=== PATIENT | male | born 1935 | race Caucasian/White ===

== ENCOUNTER 2023-07-17 05:05 | Day surgery (SDC) | payer OTHER ==
[2023-07-16 14:09] VITALS: BMI 26.4
[2023-07-17 08:34] LABS: BASO % 0.5 % (0-2.0); EOS % 5.2 % (0-4.5); HEMATOCRIT 37.4 % (35.4-49); HEMOGLOBIN 12.6 GM/dL (11.7-16.9); LYMPH % 21.1 % (8-40); MCHC 33.6 g/dl (32.0-35.9); MEAN CELL VOLUME 86.4 fl (80-96); MEAN PLT VOLUME 9.2 fl (7.5-11.1); MONO % 9.9 % (3.8-10.2); NEUT % 63.3 % (42.8-82.8); PLATELET COUNT 140 10^3/uL (134-434); RBC 4.33 M/mm3 (4.00-5.60); RDW 15.1 % (11.9-15.9); WHITE BLOOD COUNT 6.2 K/mm3 (4.0-10.0)
[2023-07-17 08:35] LABS: INR 1.07 (0.83-1.09); PROTHROMBIN TIME (PATIENT) 12.4 SEC (9.7-13.0)
[2023-07-17] MEDS ORDERED: FENTANYL CITRATE/PF 50 MCG/ML VIAL ONE (10:26)
[2023-07-17] MEDS ORDERED: FENTANYL CITRATE/PF 50 MCG/ML VIAL IVPUSH ONE (10:50)
[2023-07-17 11:00] VITALS: RESP 18
[2023-07-17 12:50] VITALS: BP 129/80; PULSE 80; TEMP 97.8
== END 2023-07-17 13:15 | disposition home or self-care (01) ==
LOC: JRADIR 05:05
PROVIDERS: ATTEND Radiology Radiation Oncology
PROC: 0QB23ZX Excision of Right Pelvic Bone, Percutaneous Approach, Diagnostic (ICD-10-PCS; principal; 2023-07-17)
DX: C61 Malignant neoplasm of prostate (principal); C79.9 Secondary malignant neoplasm of unspecified site
CPT/HCPCS: 20225; 36415; 77012-TC; 85025; 85610; 88307-TC; 88342-TC